=== PATIENT | female | born 1965 | race African-American/Black ===

== ENCOUNTER → 2020-02-10 10:04 | Outpatient (CLI) | payer OTHER, SELFPAY ==
[2020-02-11 15:47] LABS: COVID19 Sendout Not Detected (Not Detect)
== END ==
PROVIDERS: PCP Physician Assistant; Visit Provider Physician Assistant
DX: Z11.59 Encounter for screening for other viral diseases (principal)
CPT/HCPCS: 87635

== ENCOUNTER 2020-02-13 06:25 | Day surgery (SDC) | payer OTHER, SELFPAY ==
[2020-02-07 12:38] VITALS: BMI 28.9
[2020-02-13] VITALS (8 sets, daily range): BP systolic 149–184; BP diastolic 75–121; PULSE 93–112; RESP 12–18; TEMP 36.4–37.3; O2SAT 95–99; BMI 28.9
--- NOTE | 2020-02-13 | PATH_ITS ---
[facility] Accession Number: [id number] . 01 Material submitted: . abdomen - RIGHT UPPER ABDOMINAL . 01 Clinical history: . EXCISION OF SOFT TISSUE MASS RIGHT ABDOMEN . 01 Diagnosis: Right Upper Abdominal, Excision: Mature fibroadipose tissue, consistent with lipoma. V 02/16/2020 0942 Local . 01 Electronically signed: . Taco Montes MD, Dermatopathologist NPI- [id number] . 01 Gross description: . Received in formalin, labeled right upper abdominal soft tissue mass, and consists of multiple pineda-yellow fragments of adipose tissue measuring 8.0 x 7.5 x 3.0 cm in aggregate. The specimen is inked blue and sectioned to reveal pineda-yellow lobulated cut surfaces. Sound Effects Technician sections are submitted in cassettes A1-A8. ([id number]) /V 02/15/2020 1523 Local . 01 Pathologist provided ICD-10: D17.9 . 01 CPT . 617831 Performed at: [address] [facility] [address], [place], [place] [id number] MD Vimal Chang MD Phone: [phone]
[2020-02-13] MEDS: ACETAMINOPHEN 325 MG TABLET 975 MG PO (07:04)
[2020-02-13] MEDS: SCOPOLAMINE 1 PATCH TOP (07:08)
--- NOTE | 2020-02-13 07:22 | SUR.OPER ---
Supine on padded OR bed, head on pillow, arms secured on padded arm boards at <90 degrees abduction, legs uncrossed, safety belt at thigh, tape over blanket over lower legs.
[2020-02-13] MEDS: LACTATED RINGERS 1,000 ML 42 ML IV (07:23)
--- NOTE | 2020-02-13 07:29 | PM.PREOP ---
Pre-operative Note COVID-19 COVID-19 status: Negative Interval Note History & Physical reviewed/Exam performed by Physician: Yes Changes to H&P: No
[2020-02-13] MEDS: CEFAZOLIN 2 GM/100 ML FROZ.PIGGY IV (07:43)
[2020-02-13] MEDS: BUPIVACAINE 0.25% (PF) VIAL 30 ML INJ (08:01)
[2020-02-13] MEDS: fentaNYL 100 MCG/2 ML INJ IV (08:51)
--- NOTE | 2020-02-13 08:56 | SUR.PHASEI ---
Received to PACU at 0840. Airway patent, self maintained. Report from Dr Downs and Aroldo RN. Hypertension noted - no change from preop (Dr Downs aware).
[2020-02-13] MEDS: OXYCODONE IR 5 MG TABLET PO (09:56)
--- NOTE | 2020-02-13 12:04 | PM.OP.1 ---
Operative Date/Time/Diagnoses Date of procedure: 02/13/20 Time of procedure: 12:05 Pre-op diagnosis: 5 cm abdominal wall soft tissue mass Post-op diagnosis: same Procedure & Clinicians Procedure: excision of abdominal wall soft tissue mass Same procedure as scheduled: Yes Indications: 54F with a symptomatic slowly enlarging soft tissue mass of the right upper abdominal wall. Surgeon: Fermin Schwarz Anesthesia Type: General Operative Notes Findings: consistent with a lipoma Estimated Blood Loss (mL): 10 Procedure in detail: Patient was brought to the operating room placed supine on the table. Bilateral lower extremity compression devices were applied. General anesthesia was induced there intubated with a LMA. The received 2 g of Ancef prior to skin incision. There prepped and draped in sterile fashion. Time-out was performed. 1% lidocaine was infiltrated into the skin over the area of concern on the right upper aspect of the abdomen. The soft tissue mass was readily palpable. Incision over the soft tissue mass was made with a knife and the subcutaneous tissues were divided. The mass was encountered insert appearance is consistent with lipoma, it was grasped and then it was dissected out circumferentially. Mass was then removed and passed off the field as specimen. Hemostasis was achieved. The subcutaneous tissue was closed with Vicryl suture and the skin closed with Monocryl followed by the application of Dermabond. She emerged from anesthesia was and transferred to recovery room in stable condition. Complications: none Post-operative Condition: stable Disposition: same day surgery
--- NOTE | 2020-02-13 13:32 | SUR.PHASEII ---
Late entry: Assumed care from JOYCE Desir, incision with glue C/D/I to r upper abdomen. Ice to area, pt c/o pain medicated with oxycodone. Pt wanted to stay and rest a while. eventually called when pt ready. Pt dressed and left in stable condition.
== END 2020-02-13 11:00 | disposition home or self-care (01) ==
PROVIDERS: PCP Physician Assistant; Referring Provider Surgery; Visit Provider Surgery
PROC: (CPT 22903; principal; 2020-02-13 07:45)
DX: D17.1 Benign lipomatous neoplasm of skin and subcutaneous tissue of trunk (principal); I10 Essential (primary) hypertension; E11.9 Type 2 diabetes mellitus without complications; Z79.4 Long term (current) use of insulin
CPT/HCPCS: 22903; J0690; J1885; J2250; J2405; J2704; J3010

== ENCOUNTER → 2020-02-16 08:25 | Outpatient (CLI) | payer OTHER, SELFPAY ==
[2020-02-18 18:25] LABS: COVID19 Sendout Not Detected (Not Detect)
== END ==
PROVIDERS: PCP Physician Assistant; Visit Provider Nurse Practitioner
DX: Z11.59 Encounter for screening for other viral diseases (principal)
CPT/HCPCS: 87635

== ENCOUNTER 2020-02-19 06:38 | Day surgery (SDC) | payer OTHER, SELFPAY ==
[2020-02-19] VITALS (7 sets, daily range): BP systolic 135–164; BP diastolic 76–88; PULSE 90–99; RESP 10–18; TEMP 36.2–36.4; O2SAT 99–100; BMI 26.9
[2020-02-19] MEDS: LACTATED RINGERS 1,000 ML 200 ML IV (07:12)
--- NOTE | 2020-02-19 07:51 | P.HP_ITS ---
History of Present Illness History of Present Illness Date Patient Seen: 02/19/20 Time Patient Seen: 07:51 Chief complaint: SDC Narrative: The patient presents for colorectal sreening. They have never had any previous examination for such. No personal or family history of colon cancer. On further history denies any recent gastrointestinal symptoms. No nausea, vomiting, abdominal pain, loss of appetite, unexplained weight loss, change in bowel habits, diarrhea, constipation, melena, hematochezia, or bright red blood per rectum. Patient History Medical History Asthma (Acute) Diabetes (Acute) HTN (hypertension) (Acute) Thyroid disease (Acute) Surgical History H/O lumpectomy (Acute 08/2002) History of surgical removal of ganglion cyst (Acute 11/2002) Hx of hysterectomy (Acute 08/2002) Family & Social History Social History: household members spouse Tobacco & Substance use: Tobacco type cigarettes Smoking Status Former smoker alcohol intake current alcohol intake frequency a few times a week Substance Use Type does not use Meds Home Medications and Allergies Home Medications Medication Instructions Recorded Confirmed Type ascorbate calcium (vitamin C) 500 500 mg PO DAILY 01/25/20 02/19/20 History mg tablet cholecalciferol (vitamin D3) 50 5,000 unit PO DAILY 01/25/20 02/19/20 History mcg (2,000 unit) tablet insulin glargine 100 unit/mL (3 5 unit SUBCUT DAILY 01/25/20 02/19/20 History mL) subcutaneous pen levothyroxine 100 mcg capsule 100 mcg PO DAILY 01/25/20 02/19/20 History lisinopril 10 mg tablet 10 mg PO DAILY 01/25/20 02/19/20 History metformin 1,000 mg tablet 1,000 mg PO BID 01/25/20 02/19/20 History hxkgyafo-rqd-pfqia acid 0.4 1 tab PO DAILY 01/25/20 02/19/20 History mg-lycopene 300 mcg-lutein 250 mcg tablet omega-3 fatty acids 1,000 mg 2,000 mg PO DAILY 01/25/20 02/19/20 History capsule progesterone micronized 4 % 1 applicator VAG Q OTHER DAY 09/03/20 09/28/20 History vaginal gel calcium carbonate [Calcium 500] 1,000 mg PO DAILY 02/07/20 02/19/20 History acetaminophen [Tylenol] 650 mg PO QID PRN #60 cap 02/13/20 02/19/20 Rx oxycodone 5 mg PO Q6H PRN #20 tab 02/13/20 02/19/20 Rx Allergies Allergy/AdvReac Type Severity Reaction Status Date / Time No Known Drug Allergies Allergy Verified 02/19/20 07:10 Review of Systems Review of Systems Narrative: A 10 point review of systems is negative except as noted in the HPI Exam Vital Signs (past 8 hours): - 02/19/20 07:13 Temperature 97.4 F L Pulse Rate 99 H Respiratory Rate 18 Blood Pressure 161/88 H Pulse Oximetry 100 Oxygen Delivery Method Room Air Narrative Exam Narrative: General-no acute distress, well nourished adult female HEENT-moist mucous membranes, no scleral icterus Neck-supple, no lymphadenopathy Chest- non labored respirations, clear to auscultation bilaterally Cardiac-regular rate no peripheral edema Abdomen-soft, nontender, non distended Extremities-warm, well perfused Neurological-alert and oriented, no focal deficits Assessment & Plan Assessment and plan (1) Screening for colon cancer: Status: Acute Assessment & Plan narrative: The patient requires colorectal screening and colonoscopy is recommended. Technical details were discussed. Risks, benefits, alternatives explained. Risks including but not limited to myocardial infarct ion, aspiration, bleeding, pain, missed lesion, incomplete examination, need for further radiographic studies, colonic perforation, and need for major abdominal surgery were discussed. All questions were answered to their satisfaction, and they are in agreement with this plan.
[2020-02-19] MEDS: MIDAZOLAM 5 MG/5 ML VIAL IV (08:03)
[2020-02-19] MEDS: fentaNYL 250 MCG/5 ML INJ IV (08:03)
--- NOTE | 2020-02-19 08:17 | PM.OP.ENDO ---
Operative Date/Time/Diagnoses Date of procedure: 02/19/20 Time of procedure: 08:17 Pre-op diagnosis: Screening colonoscopy Post-op diagnosis: same Procedure & Clinicians Study performed: Colonoscopy Same procedure as scheduled: Yes Indications: 54-year-old woman no prior colonoscopy presents for routine screening Surgeon: Fermin Schwarz Procedure Notes SCOAP/Timeout: Performed Procedure in detail: Patient placed in left lateral recumbent position. Time out was performed. Procedural sedation was administered with Versed and Fentanyl. Examination began with a thorough inspection of the perianal area there was no evidence of fissures, fistulae, external hemorrhoids or cutaneous malignancy. The colonoscopy scope was then placed into the rectum the the lumen was insufflated with air. The scope was carefully advanced forward. Ultimately the cecum was intubated and confirmed by identification of the ileocecal valve, the appendiceal orifice and the confluence of the taenia. The scope was then slowly withdrawn examining colon thoroughly in all directions. In the rectum the rectal columns were identified and retroflexion of the scope was performed for inspection of the distal rectum and anal canal. The colonoscopy was notable for the followin. Quality of the preparation-excellent 2. No masses or polyps Scope withdrawal time: 8 Sedation minutes: 18 Specimen(s): none sent Complications: none Impression: Normal colonoscopy Post-procedure Recommendations: Colonscopy in 10 years Disposition: same day surgery
--- NOTE | 2020-02-19 08:28 | SUR.PHASEI ---
Received to PACU at 0822 after MAC. Airway patent, self maintained. Report received from JOYCE Madden. pt c/o abdominal cramping. Abdomen soft, non distended. Pt dozing on and off.
== END 2020-02-19 09:05 | disposition home or self-care (01) ==
PROVIDERS: PCP Physician Assistant; Referring Provider Physician Assistant; Visit Provider Surgery
PROC: 0DJD8ZZ Inspection of Lower Intestinal Tract, Via Natural or Artificial Opening Endoscopic (ICD-10-PCS; CPT 45378; principal; 2020-02-19 07:45)
DX: Z12.11 Encounter for screening for malignant neoplasm of colon (principal); E11.9 Type 2 diabetes mellitus without complications; I10 Essential (primary) hypertension; J45.909 Unspecified asthma, uncomplicated; Z79.4 Long term (current) use of insulin
CPT/HCPCS: 45378; 99152; J2250; J3010

== ENCOUNTER → 2021-05-06 07:02 | Outpatient (CLI) | payer OTHER, SELFPAY ==
--- NOTE | 2021-05-06 | DI.MG.S_ITS ---
BILATERAL DIGITAL SCREENING MAMMOGRAM 3D/2D WITH CAD: 05/06/2021 CLINICAL: Routine screening. Family history of breast cancer. Comparison is made to exams dated: 02/16/2019 mammogram, 07/18/2013 mammogram, and 03/05/2010 mammogram - [facility]. There are scattered fibroglandular elements in both breasts. Current study was also evaluated with a Computer Aided Detection (CAD) system. There are benign calcifications in both breasts. No significant masses, calcifications, or other findings are seen in either breast. There has been no significant interval change. IMPRESSION: BENIGN There is no mammographic evidence of malignancy. A 1 year screening mammogram is recommended. This exam was interpreted at Station ID: [id number]. NOTE: For mammograms, a report in lay terms will be sent to the patient. Approximately 15% of breast malignancies will not be visualized mammographically. In the management of a palpable breast mass, a negative mammogram must not discourage biopsy of a clinically suspicious lesion. Electronically Signed By: Lucero adames/terrence:05/06/2021 11:13:11 letter sent: Normal Exam ACR BI-RADS Category 2: Benign Finding(s) 3342F
== END ==
PROVIDERS: PCP Physician Assistant; Referring Provider Physician Assistant; Visit Provider Physician Assistant
DX: Z12.31 Encounter for screening mammogram for malignant neoplasm of breast (principal); Z80.3 Family history of malignant neoplasm of breast
CPT/HCPCS: 77063; 77067

== ENCOUNTER → 2022-06-27 08:13 | Outpatient (CLI) | payer OTHER, SELFPAY ==
--- NOTE | 2022-06-27 08:14 | DI.MG.S_ITS ---
BILATERAL DIGITAL SCREENING MAMMOGRAM 3D/2D WITH CAD: 06/27/2022 CLINICAL: Routine screening. Family history of breast cancer. Comparison is made to exams dated: 05/06/2021 mammogram - [facility], 02/16/2019 mammogram, and 07/18/[address] mamm[address] - [facility]. There are scattered areas of fibroglandular density in both breasts (category b / 25%-50% glandular tissue). Current study was also evaluated with a Computer Aided Detection (CAD) system. There are grouped fine punctate calcifications in the left breast at 1 o'clock posterior depth. These are increased in number of calcifications. No other significant masses, calcifications, or other findings are seen in either breast. IMPRESSION: INCOMPLETE: NEEDS ADDITIONAL IMAGING EVALUATION The grouped fine punctate calcifications in the left breast are indeterminate. Mediolateral, spot magnification, and additional views are recommended. Based on the Tyrer Cuzick model (a risk assessment model) the patient's lifetime risk is 9.9% and her 10 year risk is 3.7%. According to the ACR, ACS, and NCCN guidelines, an annual breast MRI exam along with mammogram is recommended if the patient's lifetime risk is 20% or greater. This exam was interpreted at Station ID: [id number]. NOTE: For mammograms, a report in lay terms will be sent to the patient. Approximately 15% of breast malignancies will not be visualized mammographically. In the management of a palpable breast mass, a negative mammogram must not discourage biopsy of a clinically suspicious lesion. Electronically Signed By: Vimal travis/terrence:06/29/2022 02:44:21 letter sent: Additional Imaging Needed ACR BI-RADS Category 0: Incomplete 3340F
== END ==
PROVIDERS: PCP Physician Assistant; Referring Provider Physician Assistant; Visit Provider Nurse Practitioner Family
DX: Z12.31 Encounter for screening mammogram for malignant neoplasm of breast (principal); Z80.3 Family history of malignant neoplasm of breast
CPT/HCPCS: 77063; 77067

== ENCOUNTER → 2022-07-22 09:53 | Outpatient (CLI) | payer OTHER, SELFPAY ==
--- NOTE | 2022-07-22 | DI.MG.S_ITS ---
UNILATERAL LEFT DIGITAL DIAGNOSTIC MAMMOGRAM 3D/2D WITH ADDITIONAL VIEWS: 07/22/2022 CLINICAL: Additional evaluation requested from prior study. Comparison is made to exams dated: 06/27/2022 mammogram, 05/06/2021 mammogram - [facility], and 02/16/2019 mammogram - [facility]. There are scattered areas of fibroglandular density in the left breast (category b / 25%-50% glandular tissue). There are grouped fine punctate calcifications in the left breast at 1 o'clock posterior depth. No other significant masses or calcifications are seen in the breast. IMPRESSION: SUSPICIOUS OF MALIGNANCY The grouped fine punctate calcifications in the left breast are at a low suspicion for malignancy. A stereotactic biopsy is recommended. Exam findings were discussed with the patient by Dr. Gilbert. Based on the Tyrer Cuzick model (a risk assessment model) the patient's lifetime risk is 9.9% and her 10 year risk is 3.7%. According to the ACR, ACS, and NCCN guidelines, an annual breast MRI exam along with mammogram is recommended if the patient's lifetime risk is 20% or greater. This exam was interpreted at Station ID: [id number]. NOTE: For mammograms, a report in lay terms will be sent to the patient. Approximately 15% of breast malignancies will not be visualized mammographically. In the management of a palpable breast mass, a negative mammogram must not discourage biopsy of a clinically suspicious lesion. Electronically Signed By: Andrea Bhagat M.D. [facility] [place]/:07/22/2022 16:21:13 letter sent: Biopsy Required ACR BI-RADS Category 4a: Suspicious abnormality - low suspicion for malignancy 3344F
== END ==
PROVIDERS: PCP Physician Assistant; Referring Provider Physician Assistant; Visit Provider Physician Assistant
DX: R92.8 Other abnormal and inconclusive findings on diagnostic imaging of breast (principal); R92.1 Mammographic calcification found on diagnostic imaging of breast
CPT/HCPCS: 77065; G0279

== ENCOUNTER → 2023-01-20 13:08 | Outpatient (CLI) | payer OTHER, SELFPAY ==
--- NOTE | 2023-01-20 | DI.MG.S_ITS ---
UNILATERAL LEFT DIGITAL DIAGNOSTIC MAMMOGRAM 3D/2D SHORT-TERM FOLLOW-UP: 01/20/2023 CLINICAL: Patient returns for a 6 month follow up of the left breast. Post biopsy. Comparison is made to exams dated: 08/03/2022 specimen, 08/03/2022 stereotactic biopsy - [facility] [place], 07/22/2022 mammogram, 06/27/2022 mammogram, 05/06/2021 mammogram - [facility], and 02/16/2019 mammogram - [facility]. There are scattered areas of fibroglandular density in the left breast (category b / 25%-50% glandular tissue). Left breast biopsy clip with adjacent loosely grouped calcifications. The calcifications are not significantly changed. No significant masses, calcifications, or other findings are seen in the breast. IMPRESSION: BENIGN There is no mammographic evidence of malignancy. A 1 year screening mammogram is recommended. Based on the Tyrer Cuzick model (a risk assessment model) the patient's lifetime risk is 18.9% and her 10 year risk is 7.1%. According to the ACR, ACS, and NCCN guidelines, an annual breast MRI exam along with mammogram is recommended if the patient's lifetime risk is 20% or greater. This exam was interpreted at Station ID: [id number]. NOTE: For mammograms, a report in lay terms will be sent to the patient. Approximately 15% of breast malignancies will not be visualized mammographically. In the management of a palpable breast mass, a negative mammogram must not discourage biopsy of a clinically suspicious lesion. Electronically Signed By: Andrea Bhagat M.D. [facility] [place]/:01/20/2023 14:50:39 letter sent: Normal Exam ACR BI-RADS Category 2: Benign Finding(s) 3342F
== END ==
PROVIDERS: PCP Physician Assistant; Referring Provider Physician Assistant; Visit Provider Physician Assistant
DX: R92.8 Other abnormal and inconclusive findings on diagnostic imaging of breast (principal)
CPT/HCPCS: 77065; G0279

== ENCOUNTER → 2023-07-03 08:13 | Outpatient (CLI) | payer OTHER, SELFPAY ==
--- NOTE | 2023-07-03 | DI.MG.S_ITS ---
BILATERAL DIGITAL SCREENING MAMMOGRAM 3D/2D WITH CAD: 07/03/2023 CLINICAL: Routine screening. Family history of breast cancer. Comparison is made to exams dated: 01/20/2023 mammogram, 07/22/2022 mammogram, 06/27/2022 mammogram, 05/06/2021 mammogram - [facility], and 02/16/2019 mammogram - [facility]. There are scattered areas of fibroglandular density in both breasts (category b / 25%-50% glandular tissue). Current study was also evaluated with a Computer Aided Detection (CAD) system. There are benign post operative findings in the right breast. There also is a biopsy clip in the left breast. No significant masses, calcifications, or other findings are seen in either breast. There has been no significant interval change. IMPRESSION: BENIGN There is no mammographic evidence of malignancy. A 1 year screening mammogram is recommended. Based on the Tyrer Cuzick model (a risk assessment model) the patient's lifetime risk is 18.6% and her 10 year risk is 7.3%. According to the ACR, ACS, and NCCN guidelines, an annual breast MRI exam along with mammogram is recommended if the patient's lifetime risk is 20% or greater. This exam was interpreted at Station ID: [id number]. NOTE: For mammograms, a report in lay terms will be sent to the patient. Approximately 15% of breast malignancies will not be visualized mammographically. In the management of a palpable breast mass, a negative mammogram must not discourage biopsy of a clinically suspicious lesion. Electronically Signed By: Berry puentes/terrence:07/05/2023 09:16:32 letter sent: Normal Exam ACR BI-RADS Category 2: Benign Finding(s) 3342F
== END ==
LOC: MAMMO 08:14
PROVIDERS: PCP Physician Assistant; Referring Provider Nurse Practitioner Family; Visit Provider Physician Assistant
DX: Z12.31 Encounter for screening mammogram for malignant neoplasm of breast (principal); Z80.3 Family history of malignant neoplasm of breast; R92.323 Mammographic fibroglandular density, bilateral breasts
CPT/HCPCS: 77063; 77067

== ENCOUNTER → 2024-07-14 16:26 | Outpatient (CLI) | payer OTHER, SELFPAY ==
--- NOTE | 2024-07-14 16:26 | DI.MG.S_ITS ---
BILATERAL DIGITAL SCREENING MAMMOGRAM 3D/2D WITH CAD: 07/14/2024 CLINICAL: Routine screening. Family history of breast cancer. Comparison is made to exams dated: 07/03/2023 mammogram, 06/27/2022 mammogram, and 05/06/2021 mammogram - [facility]. There are scattered areas of fibroglandular density (category b / 25%-50% glandular tissue). Current study was also evaluated with a Computer Aided Detection (CAD) system. There are benign calcifications in both breasts. There also are benign post operative findings in the right breast. Additionally, there is a biopsy clip in the left breast. No significant masses, calcifications, or other findings are seen in either breast. There has been no significant interval change. IMPRESSION: BENIGN There is no mammographic evidence of malignancy. A 1 year screening mammogram is recommended. Based on the Tyrer Cuzick model (a risk assessment model) the patient's lifetime risk is 18.3% and her 10 year risk is 7.5%. According to the ACR, ACS, and NCCN guidelines, an annual breast MRI exam along with mammogram is recommended if the patient's lifetime risk is 20% or greater. This exam was interpreted at Station ID: [id number]. NOTE: For mammograms, a report in lay terms will be sent to the patient. Approximately 15% of breast malignancies will not be visualized mammographically. In the management of a palpable breast mass, a negative mammogram must not discourage biopsy of a clinically suspicious lesion. Electronically Signed By: Hernando montes/terrence:07/17/2024 07:00:01 letter sent: Normal Exam ACR BI-RADS Category 2: Benign
== END ==
LOC: MAMMO 16:26
PROVIDERS: PCP Internal Medicine; Referring Provider Internal Medicine; Visit Provider Internal Medicine
DX: Z12.31 Encounter for screening mammogram for malignant neoplasm of breast (principal); Z80.3 Family history of malignant neoplasm of breast
CPT/HCPCS: 77063; 77067